=== PATIENT | female | born 1980 | race African-American/Black ===

== ENCOUNTER 2021-06-14 07:21 | Emergency (ER) | payer OTHER ==
[~2021-06-14] VITALS: Ht 167.6 cm; Wt 60.8 kg
[~2021-06-14 07:21] MED LIST: ALPRAZOLAM ER1 MG PO; CIPRO500 MG PO; DIFLUCAN200 MG PO; LEXAPRO 10 MG T10 M2 PO; VISTARIL 25 MG25 M1 PO
[2021-06-14 08:29] LABS: URINE BILIRUBIN NEGATIVE (Negative); URINE BLOOD 3+ (Negative); URINE CLARITY CLEAR; URINE COLOR YELLOW; URINE GLUCOSE-RANDOM* NEGATIVE (Negative); URINE KETONES NEGATIVE (Negative); URINE LEUKOCYTES-REFLEX NEGATIVE (Negative); URINE NITRITE-REFLEX NEGATIVE (Negative); URINE PROTEIN (DIPSTICK) NEGATIVE (Negative); URINE SPECIFIC GRAVITY >= 1.030 (1.005-1.035); URINE UROBILINOGEN 0.2 E.U./dl (0.2-1.0)
[2021-06-14 08:38] LABS: CASTS None Seen /LPF (None Seen); MUCUS >6 Heavy strn/LPF (None Seen); SQUAMOUS >10 Many /LPF (0-3)
[2021-06-14 08:40] LABS: BACTERIA-REFLEX 1-9 Few /HPF (None Seen); CRYSTALS None Seen /LPF (None Seen); URINE RBC 1-2 Rare /HPF (NONE SEEN); URINE WBC-REFLEX 0-5 Rare /HPF (0-5)
[2021-06-14] MEDS ORDERED: DOXYCYCLINE 10100 MG PO (09:32)
[2021-06-14 09:42] VITALS: BP 119/89
== END 2021-06-14 09:43 | disposition home or self-care (01) ==
LOC: ER 07:21
PROVIDERS: Emergency Medicine
DX: N89.8 Other specified noninflammatory disorders of vagina (principal); F32.9 Major depressive disorder, single episode, unspecified